=== PATIENT | female | born 1980 | race Two or more races ===

== ENCOUNTER 2021-11-30 23:18 | Inpatient (IN) | payer MEDICAID ==
[~2021-11-30] VITALS: Ht 162.6 cm; Wt 77.1 kg
--- NOTE | 2021-11-30 23:33 | NUR ---
BIBRA C/O LEFT LEG PAIN +REDNESS +SWELLING. PT A/OX4. TOLERATING R/A WELL WITH NO SOB. CONNECTED PT TO POX AND MONITOR.
[2021-12-01] MEDS ORDERED: MORPHINE SULFATE INJ 2 MG/ML DISP.SYRIN IV ONE
[2021-12-01] MEDS ORDERED: IV NS 0.9% 500 ML BAG IV ONE
[2021-12-01] MEDS ORDERED: VANCOMYCIN 1 GM in IV D5W 250 ML IV ONE ×2
[2021-12-01] MEDS ORDERED: ONDANSETRON HCL/PF 4 MG/2 ML VIAL IVP ONE
[2021-12-01] MEDS ORDERED: ONDANSETRON HCL/PF 4 MG/2 ML VIAL ONE ×2 (00:19→08:47)
[2021-12-01] MEDS ORDERED: MORPHINE SULFATE INJ 4 MG/ML DISP.SYRIN ONE (00:19)
[2021-12-01] MEDS ORDERED: VANCOMYCIN 1 GM VIAL ONE (00:19)
[2021-12-01 00:39] LABS: BASOPHILS % (AUTO) 0.3 % (0.0-2.0); HEMATOCRIT 44 % (33-45); HEMOGLOBIN 13.9 g/dL (11.5-14.8); LYMPHOCYTES % (AUTO) 7.4 % (20.0-44.0); MEAN CORPUSCULAR HGB CONC 32 g/dl (31.0-36.0); MEAN CORPUSCULAR VOLUME 75 fL (82-100); MONOCYTES # (AUTO) 0.6 K/uL (0.1-1.30); MONOCYTES % (AUTO) 4.6 % (2.0-12.0); NEUTROPHILS % (AUTO) 87.7 % (43.0-81.0); PLATELET COUNT (AUTO) 173 K/uL (150-450); WHITE BLOOD COUNT (AUTO) 13.7 K/uL (4.3-11.0)
[2021-12-01 00:58] LABS: CALCIUM, SERUM 9.5 mg/dL (8.5-10.1); CREATININE 0.9 mg/dL (0.6-1.3); POTASSIUM 3.4 mmol/L (3.5-5.1)
--- NOTE | 2021-12-01 01:02 | NUR ---
COVID ANTIGEN SWAB COLLECTED AND SENT TO LAB
[2021-12-01 01:04] LABS: ALBUMIN 3.4 g/dL (3.4-5.0); BILIRUBIN,DIRECT 0.3 mg/dL (0.0-0.2); TOTAL PROTEIN, SERUM 9.2 g/dL (6.4-8.2)
--- NOTE | 2021-12-01 01:06 | NUR ---
NO IV ACCESS AVAILABLE. NOTIFIED RN SUP & CHARGE NURSE FOR MIDLINE
--- NOTE | 2021-12-01 04:08 | NUR ---
DR. SCHAFFER ON PHONE CALL WITH DR. MARINO REGARDING ADMISSION
[2021-12-01] MEDS ORDERED: MAGNESIUM HYDROXIDE 30 ML UDC PO PRN (05:00)
[2021-12-01] MEDS ORDERED: Z GUARD REMEDY 4 OZ OINT TP PRN (05:00)
[2021-12-01] MEDS ORDERED: ACETAMINOPHEN 325 MG TABLET PO PRN (05:00)
[2021-12-01] MEDS ORDERED: ONDANSETRON HCL/PF 4 MG/2 ML VIAL IVP PRN (05:00)
[2021-12-01] MEDS ORDERED: MAG HYDROX/AL HYDROX/SIMETH 30 ML UDC PO PRN (05:00)
[2021-12-01] MEDS ORDERED: ZOLPIDEM TARTRATE 5 MG TABLET PO PRN (05:00)
[2021-12-01] MEDS ORDERED: POTASSIUM CHLORIDE 20 MEQ TAB.PRT.SR PO ONE ×2 (05:00→08:47)
--- NOTE | 2021-12-01 05:20 | NUR ---
F/U WITH RN SUPERVISOR ACCOUNTS RECEIVABLE & STATED MIDLINE NURSE HASN'T REPLIED YET. WILL F/U AGAIN
--- NOTE | 2021-12-01 05:45 | NUR ---
ADLS DONE; PT ON BEDPAN AND URINATED. PT KEPT CLEAN AND DRY.
--- NOTE | 2021-12-01 07:34 | NUR ---
CALLED NURSE SUP FOR MIDLINE NURSE, WILL CALL BACK FOR ETA
[2021-12-01] MEDS: IV NS 0.9% 1,000 ML IV PRN ×2 (08:51→21:07)
--- NOTE | 2021-12-01 09:59 | NUR ---
GOT BED 306-1
--- NOTE | 2021-12-01 10:55 | NUR ---
ATTEMPTED TO GIVE REPORT, NURSE IS IN THE RESTROOM AND WAS TOLD TO CALL BACK IN 10 MINUTES.
--- NOTE | 2021-12-01 11:12 | NUR ---
REPORT GIVEN TO BETY FOR VICKI
[2021-12-01] MEDS ORDERED: HYDROCODONE/APAP 5/325MG TABLET PO PRN (11:30)
--- NOTE | 2021-12-01 11:49 | NUR ---
PATIENT WILL ADMIT TO ROOM 306-2, ADMITTING DX IS CELULITIS. REPORT RECIEVED BY MIGUEL PIRCE
[2021-12-01 12:00] VITALS: BP 155/74
--- NOTE | 2021-12-01 13:01 | NUR ---
WOUND CARE CONSULT: PT PRESENTS WITH VERY RED, SWOLLEN LEFT LOWER LEG WITH DRY WOUNDS TO ANTERIOR LOWER LEG, PRESENT ON ADMISSION. DR CASAS CALLED FOR DPM CONSULT. IN AGREEMENT WITH PLAN OF CARE.
[2021-12-01] MEDS: CLINDAMYCIN 900 MG in IV D5W 50 ML IV SCH ×2 (13:17→21:07)
[2021-12-01] MEDS: MORPHINE SULFATE INJ 2 MG/ML DISP.SYRIN IV PRN (13:20)
[2021-12-01 16:00] VITALS: BP 115/72
--- NOTE | 2021-12-01 18:30 | NUR ---
RN CLOSE NOTE PATIENT IN BED, IN NO ACUTE DISTRESS OBSERVED. RESPIRATION EVEN AND UNLABORED ON ROOM AIR. SKIN IS WARM TO TOUCH KEEP CLEAN//DRY, INTACT IV SITE. IN NO ADVERSE REACTION OBSERVED FROM ABX. KEPT ELEVATED HOB FOR ENSURE AIRWAY AND ASPIRATION PRECAUTION. ALSO LOWEST POSITION OF THE BED FOR SAFETY. CALL LIGHT WITHIN REACH, WILL CONTINUE TO MONITOR.
--- NOTE | 2021-12-01 19:10 | NUR ---
MS RN OPENING NOTES: RECEIVED PATIENT IN BED, AWAKE, A/O X4. NO S/S OF DISTRESS NOTED. NO COMPLAIN OF PAIN. CALL LIGHT WITHIN REACH. BED IN LOWEST AND LOCKED POSITION. LEFT LEG ELEVATED WITH PILLOW, NOTED WITH BLACK WOUND AND SKIN REDNESS. PER REPORT FROM JOHANNY ALBERT, PATIENT WAS SEN BY PA FOR WOUND EARLIER .
[2021-12-01 20:00] VITALS: BP 119/60
[2021-12-02] MEDS: CLINDAMYCIN 900 MG in IV D5W 50 ML IV SCH ×3 (04:29→21:01)
[2021-12-02] MEDS: MORPHINE SULFATE INJ 2 MG/ML DISP.SYRIN IV PRN ×3 (04:37→18:21)
[2021-12-02] MEDS ORDERED: CLINDAMYCIN IV RTU IN D5W 900 MG/50 ML PIGGYBACK IV SCH (05:00)
[2021-12-02 06:39] LABS: BASOPHILS % (AUTO) 0.2 % (0.0-2.0); EOSINOPHILS % (AUTO) 1.2 % (0.0-6.0); HEMATOCRIT 35 % (33-45); HEMOGLOBIN 10.8 g/dL (11.5-14.8); LYMPHOCYTES # (AUTO) 0.9 K/uL (0.8-4.8); LYMPHOCYTES % (AUTO) 15.2 % (20.0-44.0); MEAN CORPUSCULAR HGB CONC 31 g/dl (31.0-36.0); MEAN CORPUSCULAR VOLUME 76 fL (82-100); MONOCYTES # (AUTO) 0.7 K/uL (0.1-1.30); MONOCYTES % (AUTO) 10.9 % (2.0-12.0); NEUTROPHILS # (AUTO) 4.4 K/uL (1.8-8.9); NEUTROPHILS % (AUTO) 72.5 % (43.0-81.0); PLATELET COUNT (AUTO) 143 K/uL (150-450); RED BLOOD CELL COUNT(AUTO) 4.59 MIL/uL (4.0-5.2); WHITE BLOOD COUNT (AUTO) 6.1 K/uL (4.3-11.0)
[2021-12-02 06:43] LABS: CALCIUM, SERUM 8.5 mg/dL (8.5-10.1); CREATININE 0.6 mg/dL (0.6-1.3); MAGNESIUM 2.3 mg/dL (1.8-2.4); PHOSPHORUS 2.5 mg/dL (2.5-4.9); POTASSIUM 3.8 mmol/L (3.5-5.1)
--- NOTE | 2021-12-02 07:15 | NUR ---
MS RN OPENING NOTES RECEIVED PATIENT IN BED, ASLEEP, EASY TO WAKE UP, A/O X4. PATIENT ON ROOM AIR, WITH EQUAL AND UNLABORED BREATHING. NO S/S OF DISTRESS NOTED. NO COMPLAIN OF PAIN AT THIS TIME. WITH LEFT UPPER ARM MIDLINE ON IVF NS RUNNING AT 75ML/HR, INFUSING WELL. WITH LEFT LOWER LEG SWELLING AND REDNESS. SAFETY MEASURES ENSURED WITH BED ON LOWEST LOCKED POSITION, SIDERAILS RAISED. BED ALARM ON AND CALL LIGHT WITHIN REACH. WILL CONTINUE TO MONITOR PATIENT.
[2021-12-02 08:34] VITALS: BP 104/56
[2021-12-02] MEDS: IV NS 0.9% 1,000 ML IV PRN (11:39)
[2021-12-02] MEDS: HYDROCODONE/APAP 10/325MG TABLET PO PRN (11:48)
[2021-12-02 15:58] VITALS: BP 125/70
--- NOTE | 2021-12-02 16:00 | NUR ---
MS RN NOTES PATIENT SIGNED THE MRI CONSENT AND PUT IN THE CHART. WILL CONTINUE TO MONITOR.
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
--- NOTE | 2021-12-02 17:18 | NUR ---
MS RN NOTE PATIENT BACK FROM MRI, UNABLE TO TOLERATE PROCEDURE. IN STABLE CONDITION. WILL CONTINUE TO MONITOR PATIENT.
--- NOTE | 2021-12-02 18:39 | NUR ---
MS RN CLOSING NOTES PATIENT IN BED, AWAKE, A/O X4. PATIENT ON ROOM AIR, WITH EQUAL AND UNLABORED BREATHING. NO S/S OF DISTRESS NOTED. NO COMPLAIN OF PAIN AT THIS TIME. WITH LEFT UPPER ARM MIDLINE ON IVF NS RUNNING AT 75ML/HR, INFUSING WELL. WITH LEFT LOWER LEG SWELLING AND REDNESS. PATIENT SEEN BY FABRICATION INSPECTOR. UNABLE TO TOLERATE MRI DUE TO PAIN. WILL TRY AGAIN TOMORROW PER PATIENT'S REQUEST. SAFETY MEASURES ENSURED WITH BED ON LOWEST LOCKED POSITION, SIDERAILS RAISED. BED ALARM ON AND CALL LIGHT WITHIN REACH. WILL ENDORSE PATIENT FOR CONTINUITY OF CARE.
--- NOTE | 2021-12-02 19:10 | NUR ---
MS RN OPENING NOTES: RECEIVED PATIENT IN BED, TALKING ON THE PHONE. NO S/S OF DISTRESS NOTED. NO COMPLAIN OF PAIN. CALL LIGHT WITHIN REACH. BED IN LOWEST AND LOCKED POSITION. PER REPORT FROM JOHANNY VALDEZ RE: WOUND NURSE CAME TODAY AND SEEN THE PATIENT.
--- NOTE | 2021-12-02 20:00 | NUR ---
PER OSCAR KEITA, PATIENT REFUSED THE V/S TAKING.
[2021-12-03] MEDS: MORPHINE SULFATE INJ 2 MG/ML DISP.SYRIN IV PRN ×2 (00:39→09:42)
[2021-12-03] MEDS: IV NS 0.9% 1,000 ML IV PRN (00:40)
[2021-12-03] MEDS: CLINDAMYCIN 900 MG in IV D5W 50 ML IV SCH ×3 (04:36→21:22)
[2021-12-03 07:22] LABS: BASOPHILS % (AUTO) 0.5 % (0.0-2.0); EOSINOPHILS % (AUTO) 3.4 % (0.0-6.0); HEMATOCRIT 30 % (33-45); HEMOGLOBIN 9.6 g/dL (11.5-14.8); LYMPHOCYTES # (AUTO) 1.1 K/uL (0.8-4.8); LYMPHOCYTES % (AUTO) 27.7 % (20.0-44.0); MEAN CORPUSCULAR HGB CONC 32 g/dl (31.0-36.0); MEAN CORPUSCULAR VOLUME 76 fL (82-100); MONOCYTES # (AUTO) 0.4 K/uL (0.1-1.30); MONOCYTES % (AUTO) 11.2 % (2.0-12.0); NEUTROPHILS # (AUTO) 2.3 K/uL (1.8-8.9); NEUTROPHILS % (AUTO) 57.2 % (43.0-81.0); PLATELET COUNT (AUTO) 170 K/uL (150-450); RED BLOOD CELL COUNT(AUTO) 3.96 MIL/uL (4.0-5.2)
--- NOTE | 2021-12-03 07:30 | NUR ---
MS RN OPENING NOTES RECEIVED PATIENT ON BED AWAKE AND A/O X4. ABLE TO MAKE NEEDS KNOWN. ON ROOM AIR TOLERATING WELL. NO SOB NOTED. NOT IN DISTRESS. WITH NO COMPLAINTS OF PAIN OR DISCOMFORT AT THIS TIME. WITH IV ACCESS AT LEFT UPPER ARM MIDLINE WITH IVF NS AT 100ML/HR INFUSING WELL. SAFETY MEASURES IN PLACED. CALL LIGHT WITHIN REACH. BED ON LOWEST LOCKED POSITION, SIDE RAILS UP X2. WILL CONTINUE TO MONITOR.
[2021-12-03 08:00] VITALS: BP 106/56
[2021-12-03 08:08] LABS: CALCIUM, SERUM 7.7 mg/dL (8.5-10.1); CREATININE 0.5 mg/dL (0.6-1.3); POTASSIUM 3.5 mmol/L (3.5-5.1)
[2021-12-03] MEDS ORDERED: FUROSEMIDE 20 MG/2 ML VIAL IV SCH (08:30)
[2021-12-03 16:00] VITALS: BP 135/75
[2021-12-03] MEDS ORDERED: GADOTERATE MEGLUMINE 10 MMOL/20 ML VIAL IV ONE (18:09)
--- NOTE | 2021-12-03 18:40 | NUR ---
MS RN CLOSING NOTES PATIENT ON BED AWAKE AND A/O X4. ABLE TO MAKE NEEDS KNOWN. ON ROOM AIR TOLERATING WELL. NO SOB NOTED. NOT IN DISTRESS. WITH NO COMPLAINTS OF PAIN OR DISCOMFORT AT THIS TIME. WITH IV ACCESS AT LEFT UPPER ARM MIDLINE SALINE LOCKED, PATENT AND INTACT. DUE MEDS GIVEN. SAFETY MEASURES IN PLACED. CALL LIGHT WITHIN REACH. BED ON LOWEST LOCKED POSITION, SIDE RAILS UP X2. WILL ENDORSE TO NEXT SHIFT FOR VICKI.
--- NOTE | 2021-12-03 19:56 | NUR ---
MS RN OPENING NOTE RECEIVED PATIENT IN THE COMMODE. A/OX4. NO S/S OF APPARENT DISTRESS IN ROOM AIR. NO C/O PAIN AT THIS TIME. BILATERAL LEGS NOTED TO BE RED, SWELLING, AND WARM TO TOUCH. L. LEG NOTED TO HAVE SCABS. NO IV FLUIDS RUNNING AT THIS TIME. PATIENT ABLE TO MAKES NEEDS KNOWN, NEEDS ATTENDED AT THE MOMENT, SAFETY IN PLACE. WILL CONTINUE WITH PATIENT PLAN OF CARE.
[2021-12-03 20:00] VITALS: BP 122/73
[2021-12-04] MEDS: MORPHINE SULFATE INJ 2 MG/ML DISP.SYRIN IV PRN ×2 (04:12→20:06)
[2021-12-04] MEDS: CLINDAMYCIN 900 MG in IV D5W 50 ML IV SCH (04:13)
--- NOTE | 2021-12-04 06:37 | NUR ---
RN CLOSING NOTE PATIENT IN BED, A/OX4. NO S/S OF APPARENT DISTRESS IN ROOM AIR. PAIN MANAGED BY MEDICATION. ALL NEEDS ATTENDED. ALL SCHEDULED MEDICATION ADMINISTERED, SAFETY KEPT IN PLACE THE WHOLE SHIFT. WILL ENDORSE TO MORNING SHIFT RN FOR CONTINUITY OF CARE.
--- NOTE | 2021-12-04 07:20 | NUR ---
MS RN OPENING NOTE RECEIVED PATIENT AWAKE IN BED. A/O X 4, ABLE TO MAKE NEEDS KNOWN. NO S/SX OF DISTRESS NOTED. NO SOB. NO C/O PAIN. BREATHING IS EVEN AND UNLABORED. PT TOLERATING WELL ON ROOM AIR. IV ACCESS ALIE MIDLINE PATENT AND INTACT. SAFETY MEASURES IN PLACE WITH BED LOCKED IN LOW POSITION. SIDE RAILS UP X2. CALL LIGHT IS WITHIN REACH. WILL CONTINUE TO MONITOR PATIENT THROUGHOUT SHIFT.
[2021-12-04 08:00] VITALS: BP 114/64
[2021-12-04] MEDS ORDERED: FUROSEMIDE 20 MG/2 ML VIAL IV ONE (11:00)
[2021-12-04] MEDS: VANCOMYCIN 1 GM in IV D5W 250ml IV SCH ×2 (11:39→20:04)
[2021-12-04 16:00] VITALS: BP 132/69
--- NOTE | 2021-12-04 18:49 | NUR ---
MS RN CLOSING NOTE PATIENT IS AWAKE IN BED AWAKE, A/O X 4, ABLE TO MAKE NEEDS KNOWN. NO S/SX OF DISTRESS NOTED. NO SOB. NO C/O PAIN. BREATHING IS EVEN AND UNLABORED. PT TOLERATING WELL ON ROOM AIR. IV ACCESS ALIE MIDLINE PATENT AND INTACT. SAFETY MEASURES MAINTAINED. ALL NEEDS MET THROUGHOUT SHIFT. CALL LIGHT IS WITHIN REACH. WILL CONTINUE ENDORSE CONTINUITY OF CARE TO ONCOMING SHIFT.
--- NOTE | 2021-12-04 19:30 | NUR ---
MS RN OPENING RECEIVED PATIENT SITTING IN BED. A/OX4. NO S/S OF APPARENT DISTRESS. C/O 05/13 PAIN IN HER LEG AND ASKING FOR PAIN MEDICATION-- WILL ADMINISTER. SAFETY IN PLACE. WILL CONTINUE WITH PATIENT'S PLAN OF CARE.
[2021-12-04 20:00] VITALS: BP 123/89
[2021-12-05] MEDS: VANCOMYCIN 1 GM in IV D5W 250ml IV SCH ×4 (04:21→21:05)
--- NOTE | 2021-12-05 07:26 | NUR ---
MS RN OPENING NOTE RECEIVED PATIENT AWAKE IN BED. A/O X 4, ABLE TO MAKE NEEDS KNOWN. NO S/SX OF DISTRESS NOTED. NO SOB. NO C/O PAIN. BREATHING IS EVEN AND UNLABORED. PT TOLERATING WELL ON ROOM AIR. IV ACCESS ALIE MIDLINE PATENT AND INTACT-SL. SAFETY MEASURES IN PLACE WITH BED LOCKED IN LOW POSITION. SIDE RAILS UP X2. CALL LIGHT IS WITHIN REACH. WILL CONTINUE TO MONITOR PATIENT THROUGHOUT SHIFT.
[2021-12-05 08:00] VITALS: BP 130/77
[2021-12-05] MEDS: MORPHINE SULFATE INJ 2 MG/ML DISP.SYRIN IV PRN (09:09)
[2021-12-05 11:39] LABS: BASOPHILS % (AUTO) 0.9 % (0.0-2.0); EOSINOPHILS % (AUTO) 4.6 % (0.0-6.0); HEMATOCRIT 33 % (33-45); HEMOGLOBIN 10.5 g/dL (11.5-14.8); LYMPHOCYTES # (AUTO) 1.2 K/uL (0.8-4.8); LYMPHOCYTES % (AUTO) 29.6 % (20.0-44.0); MEAN CORPUSCULAR HGB CONC 32 g/dl (31.0-36.0); MEAN CORPUSCULAR VOLUME 75 fL (82-100); MONOCYTES # (AUTO) 0.5 K/uL (0.1-1.30); MONOCYTES % (AUTO) 11.7 % (2.0-12.0); NEUTROPHILS # (AUTO) 2.2 K/uL (1.8-8.9); NEUTROPHILS % (AUTO) 53.2 % (43.0-81.0); PLATELET COUNT (AUTO) 262 K/uL (150-450); RED BLOOD CELL COUNT(AUTO) 4.42 MIL/uL (4.0-5.2); WHITE BLOOD COUNT (AUTO) 4.1 K/uL (4.3-11.0)
[2021-12-05 13:21] LABS: CALCIUM, SERUM 8.4 mg/dL (8.5-10.1); CREATININE 0.6 mg/dL (0.6-1.3); MAGNESIUM 2.4 mg/dL (1.8-2.4); PHOSPHORUS 3.6 mg/dL (2.5-4.9)
--- NOTE | 2021-12-05 14:25 | NUR ---
RN NOTE WILL REPEAT VANCO TROUGH. AWAITING RESULT BEFORE ADMINISTERING VANCO.
--- NOTE | 2021-12-05 18:13 | NUR ---
RN NOTE NOTIFIED LAB PATIENT IS READY FOR REPEAT BLOOD DRAW.
--- NOTE | 2021-12-05 19:00 | NUR ---
RN opening notes Pt is sitting in bed comfortably accompanied by by Pt's boyfriend. Pt is alert and orientedX4. On room air. No SOB. No S/S of distress noted. ALIE midline is clean, intact and flushes easily. Pt is able to ambulate with a steady gait. Safety precautions is maintained all the time. Bed at low position, brakes locked, side rails upX2, hob elevated and call light is within reach. Will continue to monitor.
[2021-12-05 20:00] VITALS: BP 137/73
--- NOTE | 2021-12-06 02:55 | NUR ---
RN notes Pt is having constipation and requesting meds. administered milk of magnesia 30ml/po/prn as ordered for BM. Will continue to monitor.
[2021-12-06] MEDS: VANCOMYCIN 1 GM in IV D5W 250ml IV SCH ×3 (04:08→19:39)
--- NOTE | 2021-12-06 06:40 | NUR ---
RN closing notes Pt is sitting in bed comfortably. Pt is alert and orientedX4. On room air. No SOB. No S/S of distress noted.VS is stable. Routine meds were given as ordered. ALIE midline is clean, intact and flushes easily. Kept Pt clean, dry and comfortbale. Safety precautions is maintained all the time. Bed at low position, brakes locked, side rails upX2, hob elevated and call light is within reach. Will endorse to am nurse for VICKI.
--- NOTE | 2021-12-06 07:30 | NUR ---
RN MS NOTES PT IN BED, AWAKE, ALERT AND ORIENTED, WITH COMPLAINT OF LEG PAIN, THERAPEUTIC MENTOR RN ADMINISTERED PAIN MEDS, CALL LIGHT WITHIN REACH, NEEDS ATTENDED.
[2021-12-06] MEDS: MORPHINE SULFATE INJ 2 MG/ML DISP.SYRIN IV PRN ×2 (07:35→11:59)
[2021-12-06 08:00] VITALS: BP 138/80
--- NOTE | 2021-12-06 08:00 | NUR ---
RN MS NOTES PT SEEN AND EXAMINED BY DR. ELLIOTT, PLAN OF CARE DISCUSSED WITH PT, VERBALIZED UNDERSTANDING.
--- NOTE | 2021-12-06 18:10 | NUR ---
RN MS NOTES PT IN BED, ASLEEP, EASY TO AROUSE, NO COMPLAINT OF PAIN AT THIS TIME, RESPIRATIONS NORMAL, PT REFUSED BLOOD DRAW TODAY X 4, DR. ELLIOTT INFORMED, CALL LIGHT WITHIN REACH, NEEDS ATTENDED.
--- NOTE | 2021-12-06 19:00 | NUR ---
RN opening notes Pt is laying in bed comfortably watching TV. Pt is alert and orientedX4. On room air. No SOB. No S/S of distress noted. ALIE midline is clean, intact and SL. Pt is able to ambulate with a steady gait. Safety precautions is maintained all the time. Bed at low position, brakes locked, side rails upX2, hob elevated and call light is within reach. Will continue to monitor.
[2021-12-06] MEDS: HYDROCODONE/APAP 10/325MG TABLET PO PRN (19:36)
--- NOTE | 2021-12-06 19:36 | NUR ---
RN notes Pt is complaining of pain on L leg and requesting a pill meds norco 10. administered norco 10/1 tab/po/prn as ordered for pain per Pt's request. safety precautions is maintained. will continue to monitor.
--- NOTE | 2021-12-06 19:50 | NUR ---
RN notes Pt refused to have UA specimen. Refused UA. explained risks and benefits. Pt stated " I gave my urine and gave them already!! NO!
[2021-12-06 20:00] VITALS: BP 135/77
[2021-12-07] MEDS: VANCOMYCIN 1 GM in IV D5W 250ml IV SCH ×3 (03:00→20:47)
[2021-12-07] MEDS: MORPHINE SULFATE INJ 2 MG/ML DISP.SYRIN IV PRN ×3 (04:29→20:08)
--- NOTE | 2021-12-07 04:34 | NUR ---
RN notes Pt is complaining of pain on L leg 10/10 on pain scale and requesting pain med. Administered morphine 2 mg as ordered for pain per Pt request. VS is stable. safety precautions is maintained. will continue to monitor.
--- NOTE | 2021-12-07 06:40 | NUR ---
RN closing notes Pt is resting in bed comfortably. Pt is alert and orientedX4. On room air. No SOB. No S/S of distress noted. VS is stable. Routine meds were given as ordered. ALIE midline is clean, intact and SL. Safety precautions is maintained all the time. Bed at low position, brakes locked, side rails upX2, hob elevated and call light is within reach. Will endorse to am nurse for VICKI.
--- NOTE | 2021-12-07 07:30 | NUR ---
RN NOTES RECEIVED PATIENT IN BED AWAKE. A/O X4. REMAINS ON RA, EVEN CHEST EXPANSION DURING RESPIRATIONS WITH NO S/SX OF DISTRESS NOTED. NO PAIN VERBALIZED AT THIS TIME. ALIE MIDLINE INTACT AND PATENT. LEFT LEG WOUND OPEN TO AIR. SAFETY PRECAUTIONS IN PLACE: BED IN LOWEST POSITION, WHEELS LOCKED, CALL LIGHT WITHIN REACH, SIDE RAILS UP X2. WILL CONTINUE PLAN OF CARE
[2021-12-07 08:00] VITALS: BP 132/77
--- NOTE | 2021-12-07 12:00 | NUR ---
RN NOTES PATIENT REFUSES TO HAVE MALE CAREGIVERS IN HER ROOM DURING SELF CARE TIME. PREFERS TO WORK WITH WOMEN, STATES "FOR PERSONAL REASONS".
--- NOTE | 2021-12-07 12:30 | NUR ---
RN NOTES PATIENT REQUESTING TO LEAVE AMA. DOES NOT WANT TO ADHERE TO MEDICATIONS OR TREATMENTS AT THIS TIME. EXPLAINED IMPORTANCE OF ADHERING TO MEDICATIONS AND CONTINUATION OF CARE, PATIENT REQUESTED SOME TIME ALONE. CHARGE NURSE AND DR ELLIOTT MADE AWARE.
--- NOTE | 2021-12-07 13:00 | NUR ---
RN NOTES PATIENT REQUESTED TO SPEAK WITH EQUITY HOLDER. SPOKE WITH ELBA EQUIPMENT MECHANIC TO COORDINATE WITH PATIENT.
[2021-12-07 13:56] LABS: BASOPHILS # (AUTO) 0.1 K/uL (0.0-0.2); BASOPHILS % (AUTO) 1.6 % (0.0-2.0); EOSINOPHILS % (AUTO) 4.5 % (0.0-6.0); HEMATOCRIT 36 % (33-45); LYMPHOCYTES % (AUTO) 27.4 % (20.0-44.0); MEAN CORPUSCULAR HGB CONC 31 g/dl (31.0-36.0); MEAN CORPUSCULAR VOLUME 77 fL (82-100); MONOCYTES # (AUTO) 0.4 K/uL (0.1-1.30); NEUTROPHILS % (AUTO) 56.5 % (43.0-81.0); PLATELET COUNT (AUTO) 299 K/uL (150-450); RED BLOOD CELL COUNT(AUTO) 4.66 MIL/uL (4.0-5.2); WHITE BLOOD COUNT (AUTO) 3.6 K/uL (4.3-11.0)
[2021-12-07 14:06] LABS: CALCIUM, SERUM 8.8 mg/dL (8.5-10.1); CREATININE 0.7 mg/dL (0.6-1.3)
[2021-12-07 16:00] VITALS: BP 126/77
--- NOTE | 2021-12-07 16:10 | NUR ---
SS Note: Pt. wanted to leave AMA this morning. SW followed-up with pt. regarding shelters. SW provided pt. with resources to shelters. SW spoke with nurse Dobbs and pt. decided to stay at hospital.
[2021-12-07] MEDS: CEFTRIAXONE 1 G in IV D5W 50 ML IV SCH (17:00)
--- NOTE | 2021-12-07 18:50 | NUR ---
RN CLOSING NOTES PATIENT IN BED. CALM AND COOPERATIVE AT THIS TIME. NO ACUTE DISTRESS NOTED. PATIENT SEEN BY FORMULA CLERK AND LEG DRESSING WAS CHANGED. ORDERS CARRIED OUT AND NEEDS MET. PATIENT ADHERED TO IV ANTIBIOTIC MEDICATIONS TODAY. REFUSING TO HAVE MALE CAREGIVERS. SAFETY PRECAUTIONS IN PLACE: BED IN LOWEST POSITION, WHEELS LOCKED, CALL LIGHT WITHIN REACH, SIDE RAILS UP X2. WILL ENDORSE TO RECYCLABLE MATERIALS DISTRIBUTOR NURSE FOR VICKI
--- NOTE | 2021-12-07 19:45 | NUR ---
MS RN OPENING NOTE PATIENT AWAKE IN BED WATCHING TV, SIGNIFICANT OTHER AT BEDSIDE. PATIENT REPORTING 8/10 PAIN ON LEFT LEG, REQUESTING PAIN MEDS, WILL GIVE PRN MORPHINE 2 MG IV ORDERED. PT STABLE ON RA, NO S/S OF DISTRESS OR SOB NOTED, BREATHING EVEN AND UNLABORED. ALIE MIDLINE INTACT AND FLUSHING WELL, SALINE LOCKED. LEFT LEG DRESSING CLEAN, DRY AND INTACT, LEG ELEVATED WITH PILLOWS. SAFETY MEASURES IN PLACE: CALL LIGHT WITHIN REACH, SIDE RAILS UP X , BED LOCKED IN LOWEST POSITION. WILL CONTINUE TO MONITOR PATIENT
[2021-12-07 20:00] VITALS: BP 123/74
[2021-12-08] MEDS: VANCOMYCIN 1 GM in IV D5W 250ml IV SCH ×3 (04:41→20:55)
[2021-12-08] MEDS: MORPHINE SULFATE INJ 2 MG/ML DISP.SYRIN IV PRN ×4 (04:52→22:54)
--- NOTE | 2021-12-08 06:59 | NUR ---
MS RN CLOSING NOTE PATIENT AWAKE IN BED WATCHING TV, NO SIGNIFICANT CHANGES THROUGHOUT SHIFT. PT STABLE ON RA, NO S/S OF DISTRESS OR SOB NOTED, BREATHING EVEN AND UNLABORED. ALIE MIDLINE INTACT AND FLUSHING WELL, SALINE LOCKED. MEDICATIONS GIVEN ORDERED, PT NEEDS MET THROUGHOUT SHIFT. SAFETY MEASURES IN PLACE: CALL LIGHT WITHIN REACH, SIDE RAILS UP X , BED LOCKED IN LOWEST POSITION. WILL ENDORSE TO DAY SHIFT NURSE FOR CONTINUITY OF CARE
--- NOTE | 2021-12-08 07:52 | NUR ---
MS RN OPENING NOTE Patient in bed, awake. A/O x 4, able to make needs known. On room air, breathing evenly and unlabored. No SOB or s/s of distress noted. IV access on ALIE midline, SL intact and patent. Left leg dressing c/d/i. Safety precautions in place: bed in low, locked position; siderails up x 2; call light within reach. Will continue to monitor.
[2021-12-08 08:00] VITALS: BP 125/60
--- NOTE | 2021-12-08 11:30 | NUR ---
RN NOTE Dr. Shantel Carter changed dressing on Left lower leg. Dressing is c/d/i.
--- NOTE | 2021-12-08 11:30 | NUR ---
RN NOTE Patient refused blood draw from lab for Vancomycin trough, requested lab to come back at a later time.
--- NOTE | 2021-12-08 14:12 | NUR ---
RN NOTE Patient still refusing blood draw for Vancomycin trough, talked to patient about the importance of blood draw before administration of IV antibiotics, patient requested to give her 20 minutes and then she will let lab draw blood.
--- NOTE | 2021-12-08 15:36 | NUR ---
RN NOTE Patient refused blood draw for Vanco trough, verified with pharmacy re administering IV Vancomycin, per pharmacy okay to give Vancomycin.
[2021-12-08] MEDS: diphenhydrAMINE HCL 25 MG CAPSULE PO PRN (15:50)
--- NOTE | 2021-12-08 16:07 | NUR ---
RN NOTE As per OSCAR Sheehan, patient refused to get VS taken.
[2021-12-08] MEDS: CEFTRIAXONE 1 G in IV D5W 50 ML IV SCH (16:41)
[2021-12-08] MEDS: HYDROCODONE/APAP 10/325MG TABLET PO PRN (17:53)
--- NOTE | 2021-12-08 18:50 | NUR ---
MS RN CLOSING NOTE Patient in bed, resting. A/O x 4, able to make needs known. Stable on room air, breathing evenly and unlabored. No SOB or s/s of distress noted. IV access on ALIE midline, SL intact and patent. Left leg dressing c/d/i. All needs attended to. Due meds given. Safety precautions maintained: bed in low, locked position; siderails up x 2; call light within reach. Will endorse to retail shift leader nurse for VICKI.
--- NOTE | 2021-12-08 20:02 | NUR ---
MS RN OPENING NOTE PATIENT AWAKE IN BED WATCHING TV. PATIENT REPORTING 8/10 PAIN ON LEFT LEG, REQUESTING PAIN MEDS, WILL GIVE PRN MORPHINE 2 MG IV ORDERED FOR BREAKTHROUGH PAIN. PT STABLE ON RA, NO S/S OF DISTRESS OR SOB NOTED, BREATHING EVEN AND UNLABORED. ALIE MIDLINE INTACT AND FLUSHING WELL, SALINE LOCKED. LEFT LEG DRESSING CLEAN, DRY AND INTACT, LEG ELEVATED WITH PILLOWS, PATIENT REMOVED PERRI WRAP AND REFUSED TO HAVE IT PLACED BY ON, WRAPPED IN KERLIX. SAFETY MEASURES IN PLACE: CALL LIGHT WITHIN REACH, SIDE RAILS UP X , BED LOCKED IN LOWEST POSITION. WILL CONTINUE TO MONITOR PATIENT
--- NOTE | 2021-12-08 20:30 | NUR ---
MS RN NOTE PATIENT REFUSED VITALS DESPITE EXPLANATION OF RISKS AND BENEFITS. WILL CONTINUE TO MONITOR PATIENT
[2021-12-08 20:41] LABS: BASOPHILS % (AUTO) 0.5 % (0.0-2.0); CALCIUM, SERUM 8.8 mg/dL (8.5-10.1); CREATININE 0.6 mg/dL (0.6-1.3); EOSINOPHILS % (AUTO) 4.2 % (0.0-6.0); HEMATOCRIT 37 % (33-45); HEMOGLOBIN 11.5 g/dL (11.5-14.8); LYMPHOCYTES # (AUTO) 1.6 K/uL (0.8-4.8); LYMPHOCYTES % (AUTO) 28.2 % (20.0-44.0); MEAN CORPUSCULAR HGB CONC 31 g/dl (31.0-36.0); MEAN CORPUSCULAR VOLUME 77 fL (82-100); MONOCYTES # (AUTO) 0.4 K/uL (0.1-1.30); MONOCYTES % (AUTO) 7.1 % (2.0-12.0); NEUTROPHILS # (AUTO) 3.3 K/uL (1.8-8.9); POTASSIUM 4.4 mmol/L (3.5-5.1); RED BLOOD CELL COUNT(AUTO) 4.82 MIL/uL (4.0-5.2); WHITE BLOOD COUNT (AUTO) 5.5 K/uL (4.3-11.0)
--- NOTE | 2021-12-08 21:00 | NUR ---
MS RN NOTE VANCO TROUGH = 24, HELD VANCO PER PARAMETERS, NOTIFIED PHARMACY
[2021-12-08 21:20] LABS: PLATELET COUNT (AUTO) 324 K/uL (150-450)
[2021-12-08 22:50] VITALS: BP 128/75
--- NOTE | 2021-12-08 22:54 | NUR ---
MS RN NOTE PATIENT C/O 8/10 LEFT LEG PAIN. OFFERED PATIENT NORCO HOWEVER, PT STATED THAT IT DIDN'T HELP HER AND REQUESTED MORPHINE. MEDICATION GIVEN ORDERED. WILL CONTINUE TO MONITOR PATIENT
[2021-12-09] VITALS: BP 128/75
--- NOTE | 2021-12-09 04:28 | NUR ---
MS RN NOTE PATIENT C/O ITCHING ALL OVER, SKIN RED FROM SCRATCHING, BENADRYL 25 MG PO GIVEN ORDERED. WILL CONTINUE TO MONITOR PATIENT
[2021-12-09] MEDS: diphenhydrAMINE HCL 25 MG CAPSULE PO PRN (04:29)
[2021-12-09] MEDS: HYDROCODONE/APAP 10/325MG TABLET PO PRN ×2 (04:30→15:28)
[2021-12-09] MEDS: VANCOMYCIN 1 GM in IV D5W 250ml IV SCH ×3 (06:02→18:04)
--- NOTE | 2021-12-09 06:31 | NUR ---
MS RN CLOSING NOTE PATIENT SLEEPING IN BED, NO SIGNIFICANT CHANGES THROUGHOUT SHIFT. PT STABLE ON RA, NO S/S OF DISTRESS OR SOB NOTED, BREATHING EVEN AND UNLABORED. ALIE MIDLINE INTACT AND INFUSING VANCO @ 250 ML/HR. MEDICATIONS GIVEN ORDERED, PT NEEDS MET THROUGHOUT SHIFT. SAFETY MEASURES IN PLACE: CALL LIGHT WITHIN REACH, SIDE RAILS UP X 2, BED LOCKED IN LOWEST POSITION. PATIENT REFUSED AM LAB DRAW, STATED SHE WANTED TO SLEEP, LAB WILL TRY AGAIN LATER. WILL ENDORSE TO DAY SHIFT NURSE FOR CONTINUITY OF CARE
--- NOTE | 2021-12-09 07:19 | NUR ---
MS RN NOTE PHARMACY CALLED FOR [facility] SCANNING STICKER SINCE I HAD TO USE THE MANUAL BARCODE, WAS TOLD TO GO [employer] RUNNER STICKER. VANCO GIVEN @ 0602 HOWEVER I HAD TO UNDO IN ORDER TO SCAN BARCODE. MEDICATION GIVEN ORDERED
--- NOTE | 2021-12-09 07:35 | NUR ---
MS RN OPENING NOTE Patient in bed, asleep. A/O x 4. On room air, breathing evenly and unlabored. No SOB or s/s of distress noted. IV access on ALIE midline, SL intact and patent. Left leg dressing c/d/i. Safety precautions in place: bed in low, locked position; siderails up x 2; call light within reach. Will continue to monitor.
[2021-12-09 08:00] VITALS: BP 115/71
[2021-12-09] MEDS: MORPHINE SULFATE INJ 2 MG/ML DISP.SYRIN IV PRN ×2 (13:37→22:27)
--- NOTE | 2021-12-09 13:37 | NUR ---
RN NOTE Patient complained of pain on Left lower leg 8/10, PRN Morphine given.
[2021-12-09] MEDS: CEFTRIAXONE 1 G in IV D5W 50 ML IV SCH (15:26)
[2021-12-09 18:12] LABS: BASOPHILS % (AUTO) 0.8 % (0.0-2.0); EOSINOPHILS % (AUTO) 4.2 % (0.0-6.0); HEMATOCRIT 31 % (33-45); HEMOGLOBIN 9.7 g/dL (11.5-14.8); LYMPHOCYTES % (AUTO) 24.8 % (20.0-44.0); MEAN CORPUSCULAR HGB CONC 31 g/dl (31.0-36.0); MEAN CORPUSCULAR VOLUME 77 fL (82-100); MONOCYTES # (AUTO) 0.4 K/uL (0.1-1.30); MONOCYTES % (AUTO) 8.9 % (2.0-12.0); NEUTROPHILS # (AUTO) 2.4 K/uL (1.8-8.9); NEUTROPHILS % (AUTO) 61.3 % (43.0-81.0); PLATELET COUNT (AUTO) 288 K/uL (150-450); RED BLOOD CELL COUNT(AUTO) 4.05 MIL/uL (4.0-5.2)
[2021-12-09 18:25] LABS: CALCIUM, SERUM 8.2 mg/dL (8.5-10.1); CREATININE 0.7 mg/dL (0.6-1.3)
--- NOTE | 2021-12-09 19:26 | NUR ---
MS RN CLOSING NOTE Patient in bed, resting. A/O x 4, able to make needs known. Stable on room air, breathing evenly and unlabored. No SOB or s/s of distress noted. IV access on ALIE midline, SL intact and patent. All needs attended to. due meds given. Patient refused wound care treatment today. Safety precautions maintained: bed in low, locked position; siderails up x 2; call light within reach. Will endorse to night stocker nurse for VICKI.
--- NOTE | 2021-12-09 19:30 | NUR ---
RN opening notes Pt is ambulating in the room with a steady gait. Pt's son at the bedside. Pt is alert and orientedX4. On room air. No SOB. No S/S of distress noted. ALIE midline is clean, intact and SL. Safety precautions is maintained all the time. Bed at low position, brakes locked, side rails upX2, hob elevated and call light is within reach. Will continue to monitor.
--- NOTE | 2021-12-09 20:40 | NUR ---
RN notes Pt refused VS check. Offered two times. Explained risks and benefits. Pt states "Come back later!"
--- NOTE | 2021-12-09 20:54 | NUR ---
RN notes Pt refused to see ID Doctor, DR. Watson. Pt states "come back later!" Explained risks and benefits. Pt keep stating "Come back later!!"
--- NOTE | 2021-12-09 21:05 | NUR ---
RN notes spoke with Pharmacy, Anuja regarding vanco abx. Informed Anuja that vanco trough level 4 was 24. Anuja said it's okay to give and dose has been adjusted. will continue to monitor.
--- NOTE | 2021-12-09 22:35 | NUR ---
RN notes Pt is complaining of pain on L leg 10/10 on pain scale and requesting pain med. Administered morphine 2 mg as ordered for pain per Pt request. safety precautions is maintained. Will continue to monitor.
--- NOTE | 2021-12-10 03:40 | NUR ---
RN notes Wound care provided as ordered. Pt tolerated activity well.
[2021-12-10] MEDS: VANCOMYCIN 1 GM in IV D5W 250ml IV SCH ×2 (05:05→18:00)
--- NOTE | 2021-12-10 06:41 | NUR ---
RN closing notes Pt is resting in bed comfortably. Pt is alert and orientedX4. On room air. No SOB. No S/S of distress noted. Wound care provided as ordered. ALIE midline is clean, intact and SL. Kept Pt clean, dry and comfortable. Safety precautions is maintained all the time. Bed at low position, brakes locked, side rails upX2, hob elevated and call light is within reach. Will endorse to am nurse for VICKI.
--- NOTE | 2021-12-10 07:45 | NUR ---
RN OPENING NOTE PATIENT IN BED RESTING,AWAKE, A/O X4, NO S/S OF PAIN NOTED AT THIS TIME. ON ROOM AIR, NO DISTRESS OR SHORTNESS OF BREATH NOTED. IV ACCESS ALIE MIDLINE, INTACT, PATENT AND FLUSHING WELL. FALL AND SAFETY MEASURES IN PLACE, BED ALARM ON, BED IN LOW AND LOCK POSITION, CALL LIGHT AND TABLE WITHIN EASY REACH, SIDE RAILS UP X2. WILL CONTINUE TO MONITOR.
[2021-12-10] MEDS: MORPHINE SULFATE INJ 2 MG/ML DISP.SYRIN IV PRN (07:51)
[2021-12-10 08:00] VITALS: BP 138/77
[2021-12-10] MEDS ORDERED: SULF1TAB48 PO (09:46)
[2021-12-10] MEDS: diphenhydrAMINE HCL 25 MG CAPSULE PO PRN (12:37)
[2021-12-10] MEDS: CEFTRIAXONE 1 G in IV D5W 50 ML IV SCH (16:20)
--- NOTE | 2021-12-10 18:00 | NUR ---
RN NOTE PATIENT 1800 VANCOMYCIN WAS NOT ADMINISTERED, PATIENT DID NOT HAVE IV ACCESS, PATIENT WAS GETTING READY TO BE DISCHARGE.
--- NOTE | 2021-12-10 19:02 | NUR ---
AIRLINE LOUNGE RECEPTIONIST NOTE PATIENT DISCHARGE IN STABLE MEDICAL CONDITION. A/O X4. PATIENT REFUSED TO TAKE THE AFTERNOON VITAL SIGNS. MORNING VITAL SIGNS TAKEN, STABLE AND RECORDED. NO IV ACCESS. PATIENT REFUSED SKIN ASSESSMENT, PICTURES AND WOUND TREATMENT BEFORE DISCHARGE. NAME ARM BAND REMOVED. ALL BELONGINGS CHECKED AND SIGNED. HEALTH TEACHING AND DISCHARGE INSTRUCTIONS GIVEN AND VERBALIZED UNDERSTANDING. PATIENT LEFT UNIT VIA WHEELCHAIR WITH NO SIGNS OF DISTRESS, ACCOMPANIED BY GROUND PRODUCTS DIRECTOR TO THE LOBBY. PATIENT LEFT THE HOSPITAL WITH BOYFRIEND. CHARGE NURSE AWARE OF DISCHARGED.
== END 2021-12-10 18:05 | disposition home or self-care (01) | DRG 383 ==
LOC: ER 23:25 → TRANSITION 12-01 06:30 → MED 12-01 10:37
PROVIDERS: ADMIT Internal Medicine; ATTEND Internal Medicine
PROC: 05H633Z Insertion of Infusion Device into Left Subclavian Vein, Percutaneous Approach (ICD-10-PCS; principal; 2021-12-01)
PROC: B547ZZA Ultrasonography of Left Subclavian Vein, Guidance (ICD-10-PCS; 2021-12-01)
DX: L03.116 Cellulitis of left lower limb (principal); E87.1 Hypo-osmolality and hyponatremia; Z20.822 Contact with and (suspected) exposure to COVID-19; E87.6 Hypokalemia; Z59.00 Homelessness unspecified; Z88.1 Allergy status to other antibiotic agents; Z91.81 History of falling; M79.662 Pain in left lower leg; S81.812A Laceration without foreign body, left lower leg, initial encounter; X58.XXXA Exposure to other specified factors, initial encounter; Y93.9 Activity, unspecified; E87.70 Fluid overload, unspecified; D72.829 Elevated white blood cell count, unspecified; W05.1XXA Fall from non-moving nonmotorized scooter, initial encounter; Y92.89 Other specified places as the place of occurrence of the external cause
CPT/HCPCS: 36410; 36415; 80048-TC; 80076-TC; 80202-TC; 83605-TC; 83735-TC; 84100-TC; 85025-TC; 85730-TC; 87040-TC; 87081-TC; 93971-TC; A6253; A9575; C9803; G0378; J0696; J1940; J2270; J2405; J3370; J3490; J7030; J7040; J7050; J7060; Q0163